=== PATIENT | male | born 1995 | race African-American/Black ===

== ENCOUNTER 2023-07-14 07:59 | Inpatient (IN) | payer OTHER ==
[~2023-07-14] VITALS: Ht 177.8 cm; Wt 128.0 kg
[2023-07-14] MEDS ORDERED: HydrALAZINE HCL 20 MG/ML VIAL IVP ONE (08:15)
[2023-07-14 08:35] LABS: BASOPHILS % (AUTO) 0.5 % (0.0-2.0); EOSINOPHILS % (AUTO) 0.7 % (1.0-6.0); HEMATOCRIT 41.7 % (41-53); HEMOGLOBIN 13.9 g/dL (13.5-17.5); LYMPHOCYTES # (AUTO) 1.8 K/uL (1.0-4.8); LYMPHOCYTES % (AUTO) 30.5 % (22.0-44.0); MEAN CORPUSCULAR HEMOGLOBIN 26.2 pg (26.0-34.0); MEAN CORPUSCULAR HGB CONC 33.2 G/dL (31.0-37.0); MEAN CORPUSCULAR VOLUME 79 fL (80-100); MONOCYTES # (AUTO) 0.3 K/uL (0.1-1.0); MONOCYTES % (AUTO) 4.2 % (2.0-9.0); NEUTROPHILS # (AUTO) 3.9 K/uL (1.8-7.7); NEUTROPHILS % (AUTO) 64.1 % (40.0-70.0); PLATELET COUNT (AUTO) 185 K/uL (150-450); RED BLOOD CELL COUNT(AUTO) 5.28 MIL/uL (4.50-5.90); RED CELL DISTRIBUTION WIDTH 14.4 % (11.5-14.5)
[2023-07-14 08:47] LABS: PROTHROMBIN TIME 10.6 SEC (9.4-11.6)
[2023-07-14 08:51] LABS: ANION GAP 8 mmol/L (8-16); CARBON DIOXIDE 28 mmol/L (22-29); CHLORIDE 101 mmol/L (98-107); CREATININE 1.34 mg/dL (0.60-1.30); GLOMERULAR FILTR. RATE CALC > 60 mL/min (>60); GLUCOSE,RANDOM 311 mg/dL (70-110); POTASSIUM 3.7 mmol/L (3.5-5.1); SODIUM SERUM 137 mmol/L (136-145); UREA NITROGEN, BLOOD 16 mg/dL (7-18)
[2023-07-14 08:56] LABS: ALANINE AMINOTRANSFERASE 22 U/L (12-78); ALBUMIN 3.4 g/dL (3.4-5.0); ALKALINE PHOSPHATASE 133 U/L (46-116); ASPARTATE AMINOTRANSFERASE 21 U/L (15-37); BILIRUBIN,TOTAL 0.6 mg/dL (0.1-1.0); TOTAL PROTEIN, SERUM 7.5 g/dL (6.4-8.2)
[2023-07-14] MEDS ORDERED: CloNIDine HCL 0.2 MG TABLET PO ONE (09:00)
[2023-07-14] MEDS ORDERED: PHENYLEPHRINE HCL 1% 15 ML NASAL SPRAY NASAL ONE (09:00)
[2023-07-14] MEDS ORDERED: NITROPRUSSIDE SODIUM 50 MG in DEXTROSE 5%-WATER 248 ML IV PRN ×2 (10:00→10:15)
[2023-07-14 12:50] VITALS: BP 150/118; PULSE 105; RESP 20; TEMP 99; O2SAT 98
[2023-07-14 13:00] VITALS: PULSE 107
[2023-07-14] MEDS ORDERED: ZOLPIDEM TARTRATE 5 MG TABLET PO PRN (13:15)
[2023-07-14] MEDS ORDERED: HYDROCODONE/ACETAMINOPHEN 5-325 MG TABLET PO PRN (13:15)
[2023-07-14] MEDS ORDERED: DEXTROSE 50%-WATER 25 GM/50 ML SYRINGE IVP PRN (13:15)
[2023-07-14] MEDS ORDERED: ACETAMINOPHEN 325 MG TABLET PO PRN (13:15)
[2023-07-14] MEDS ORDERED: BISACODYL 10 MG RECTAL RECTAL SUPPOSITORY PR PRN (13:15)
[2023-07-14] MEDS ORDERED: MAGNESIUM HYDROXIDE SUSPENSION 30 ML UDCUP PO PRN (13:15)
[2023-07-14] MEDS ORDERED: MORPHINE SULFATE 2 MG/ML SYRINGE IVP PRN (13:15)
[2023-07-14] MEDS ORDERED: OXYMETAZOLINE HCL 0.05% 15 ML NASAL SPRAY NASAL PRN (13:15)
[2023-07-14] MEDS ORDERED: ONDANSETRON HCL 4 MG/2 ML VIAL IVP PRN (13:15)
[2023-07-14] MEDS: AmLODIPine BESYLATE 10 MG TABLET PO SCH (14:24)
[2023-07-14] MEDS: HydrALAZINE HCL 20 MG/ML VIAL IVP PRN (15:44)
[2023-07-14 16:00] VITALS: BP 134/90; PULSE 103; PULSE 92; RESP 20; TEMP 98.2; O2SAT 98
[2023-07-14 17:27] VITALS: BP 157/99; PULSE 113; RESP 18; TEMP 98.1; TEMP 98.3; O2SAT 97
[2023-07-14] MEDS: INSULIN LISPRO 100 UNITS/ML SQ PRN ×2 (18:22→20:15)
[2023-07-14 19:31] LABS: GLUCOMETER DEV NAME(LOC) ICUN.5; GLUCOSE,POINT OF CARE 272 MG/DL (70-110)
[2023-07-14 20:07] VITALS: BP 177/94; PULSE 96; RESP 18; TEMP 98.3
[2023-07-14] MEDS: DOCUSATE SODIUM 100 MG CAPSULE PO SCH (20:11)
[2023-07-14 20:26] LABS: GLUCOMETER DEV NAME(LOC) 5S.1B; GLUCOSE,POINT OF CARE 286 MG/DL (70-110)
[2023-07-14 23:22] LABS: GLUCOMETER DEV NAME(LOC) 5N.2C; GLUCOSE,POINT OF CARE 340 MG/DL (70-110)
[2023-07-15] VITALS (8 sets, daily range): BP systolic 109–161; BP diastolic 76–111; PULSE 82–100; RESP 18–19; TEMP 97.5–98.4
[2023-07-15] MEDS: HydrALAZINE HCL 20 MG/ML VIAL IVP PRN (00:42)
[2023-07-15] MEDS: INSULIN LISPRO 100 UNITS/ML SQ PRN ×2 (06:47→12:03)
[2023-07-15 07:22] LABS: BASOPHILS % (AUTO) 0.7 % (0.0-2.0); EOSINOPHILS % (AUTO) 0.8 % (1.0-6.0); HEMOGLOBIN 12.4 g/dL (13.5-17.5); LYMPHOCYTES # (AUTO) 2.9 K/uL (1.0-4.8); LYMPHOCYTES % (AUTO) 46.2 % (22.0-44.0); MEAN CORPUSCULAR HGB CONC 34.4 G/dL (31.0-37.0); MEAN CORPUSCULAR VOLUME 78 fL (80-100); MONOCYTES # (AUTO) 0.3 K/uL (0.1-1.0); MONOCYTES % (AUTO) 5.3 % (2.0-9.0); PLATELET COUNT (AUTO) 184 K/uL (150-450); RED BLOOD CELL COUNT(AUTO) 4.59 MIL/uL (4.50-5.90); RED CELL DISTRIBUTION WIDTH 14.9 % (11.5-14.5); WHITE BLOOD COUNT (AUTO) 6.4 K/uL (4.5-11.0)
[2023-07-15 07:24] LABS: HEMOGLOBIN A1C 9.7 % (3.8-5.6)
[2023-07-15 07:57] LABS: ANION GAP 8 mmol/L (8-16); CALCIUM, TOTAL 8.4 mg/dL (8.8-10.5); CARBON DIOXIDE 26 mmol/L (22-29); CHLORIDE 103 mmol/L (98-107); CHOL/HDL RATIO 3.5 (4.2-7.3); CHOLESTEROL 177 mg/dL (131-200); CREATININE 1.19 mg/dL (0.60-1.30); GLOMERULAR FILTR. RATE CALC > 60 mL/min (>60); GLUCOSE,RANDOM 242 mg/dL (70-110); HDL CHOLESTEROL 50 mg/dL (40-60); LDL CHOL (CALC.) 108 mg/dL (0-130); POTASSIUM 3.4 mmol/L (3.5-5.1); SODIUM SERUM 137 mmol/L (136-145); THYROID STIMULATING HORMONE 1.75 uIU/mL (0.36-3.74); TRIGLYCERIDES 93 mg/dL (15-150); UREA NITROGEN, BLOOD 30 mg/dL (7-18)
[2023-07-15] MEDS: AmLODIPine BESYLATE 10 MG TABLET PO SCH (08:16)
[2023-07-15] MEDS: DOCUSATE SODIUM 100 MG CAPSULE PO SCH (08:23)
[2023-07-15] MEDS ORDERED: PANTOPRAZOLE SODIUM 40 MG DR TABLET PO SCH (09:00)
[2023-07-15 11:57] LABS: GLUCOMETER DEV NAME(LOC) 5S.1B; GLUCOSE,POINT OF CARE 325 MG/DL (70-110)
[2023-07-15] MEDS ORDERED: METF-1185 PO (13:28)
[2023-07-15] MEDS ORDERED: AMLO-258 PO (13:28)
[2023-07-16 17:16] LABS: GLUCOMETER DEV NAME(LOC) 5N.1C; GLUCOSE,POINT OF CARE 217 MG/DL (70-110)
== END 2023-07-15 15:10 | disposition home or self-care (01) | DRG 305 ==
LOC: EMS 07:59 → ICU 12:22 → 5S 17:15
PROVIDERS: ADMIT Internal Medicine; ATTEND Internal Medicine
DX: I16.1 Hypertensive emergency (principal); N17.9 Acute kidney failure, unspecified; Z68.41 Body mass index [BMI] 40.0-44.9, adult; R04.0 Epistaxis; E11.65 Type 2 diabetes mellitus with hyperglycemia; E66.3 Overweight; I12.9 Hypertensive chronic kidney disease with stage 1 through stage 4 chronic kidney disease, or unspecified chronic kidney disease; E11.22 Type 2 diabetes mellitus with diabetic chronic kidney disease; N18.9 Chronic kidney disease, unspecified; T46.5X6A Underdosing of other antihypertensive drugs, initial encounter; Y92.89 Other specified places as the place of occurrence of the external cause; Z79.899 Other long term (current) drug therapy
CPT/HCPCS: 71045; 80048; 80053; 80061; 82962; 83036; 84443; 85025; 85610; 93005; 99285; G0378; J0360; J3490; J7060; 36415-L1; 36415-TC